=== PATIENT | female | born 1990 | race Caucasian/White ===

== ENCOUNTER 2020-03-05 01:53 | Emergency (ER) | payer OTHER ==
[~2020-03-05] VITALS: Ht 160 cm; Wt 61.2 kg
[~2020-03-05 01:53] MED LIST: BACTRIM DS TAB1 EACH PO; IBUPROFEN 800800 M1 PO; UNICOMPLEX M TA1 TA1 PO; ZOLOFT25 MG PO
[2020-03-05] MEDS ORDERED: BUSPIRONE HCL10 MG PO (02:06)
[2020-03-05] MEDS ORDERED: LEXAPRO 10 MG T10 M2 PO (02:06)
[2020-03-05 02:27] LABS: HEMATOCRIT 39.2 % (37.0-47.0); HEMOGLOBIN 13.5 gm/dL (12.0-15.0); MCH 31.1 pg (26.0-34.0); MCHC 34.4 g/dL (28.0-37.0); MCV 90.3 fL (80.0-100.0); MPV 9.2 fl. (7.2-11.1); NUCLEATED RBCS 0 /100WBC; PLATELET COUNT* 324 thou/uL (150-400); RBC 4.34 mil/uL (4.20-5.00); RDW-CV 13.7 % (10.5-14.5); WBC 17.4 thou/uL (4.0-11.0)
[2020-03-05 02:29] LABS: CALCIUM 9.1 mg/dL (8.5-10.1); CREATININE 0.9 mg/dL (0.6-1.3); POTASSIUM 3.4 mmol/L (3.5-5.1)
[2020-03-05 02:34] LABS: ALBUMIN 4.7 g/dL (3.4-5.0); MAGNESIUM 1.7 mg/dL (1.8-2.4); TOTAL BILIRUBIN 0.4 mg/dL (<0.1-1.0); TOTAL PROTEIN 8.5 g/dL (6.4-8.2)
[2020-03-05 02:56] LABS: ABSOLUTE MONOCYTES 0.3 thou/uL (0.0-1.2)
[2020-03-05 02:57] LABS: LARGE PLATELETS OCCASIONAL; PLATELET ESTIMATE ADEQUATE
[2020-03-05 06:25] LABS: URINE BILIRUBIN NEGATIVE (Negative); URINE BLOOD NEGATIVE (Negative); URINE CLARITY CLEAR; URINE COLOR YELLOW; URINE GLUCOSE-RANDOM NEGATIVE (Negative); URINE KETONES 1+ (Negative); URINE LEUKOCYTES-REFLEX NEGATIVE (Negative); URINE NITRITE-REFLEX NEGATIVE (Negative); URINE PROTEIN NEGATIVE (Negative); URINE UROBILINOGEN 0.2 E.U./dl (0.2-1.0)
[2020-03-05] MEDS ORDERED: APAP W/CODEINE1 TA2 PO (06:35)
[2020-03-05] MEDS ORDERED: ZOFRAN ODT4 MG PO (06:35)
[2020-03-05 06:46] VITALS: BP 108/58
== END 2020-03-05 06:46 | disposition home or self-care (01) ==
LOC: M.ERS 01:53
PROVIDERS: Emergency Medicine
DX: R11.2 Nausea with vomiting, unspecified (principal); R19.7 Diarrhea, unspecified; R10.9 Unspecified abdominal pain